=== PATIENT | female | born 1980 | race Asian ===

== ENCOUNTER 2018-11-19 00:04 | Emergency (ER) | payer BC ==
[~2018-11-19] VITALS: Ht 152.4 cm; Wt 93.9 kg
[2018-11-19 01:16] VITALS: BP 145/72; TEMP 97.7
== END 2018-11-19 01:27 | disposition home or self-care (01) ==
LOC: ED 00:04
DX: J32.0 Chronic maxillary sinusitis (principal)
CPT/HCPCS: 99282